=== PATIENT | male | born 1970 | race Hispanic/Latino ===

== ENCOUNTER 2018-01-16 15:00 | Outpatient (AMBR) | payer MEDICARE, MEDICAID, SELFPAY ==
--- NOTE | 2017-12-30 11:41 | PT.OIERPT ---
PT OP Initial Eval Patient Information Visit Reasons: Cerebrovascular accident Medical Diagnosis: CVA I69.30 I69.354 Hemiplegia Treatment Dx #1: ms weakness Treatment Dx #2: unsteadiness on feet Start of Care: 12/30/17 Date of Onset: 10/17/2017 Initial Assessment Subjective 47 y/o male who had CVA 4 years ago who is accompanied by his son today. Patient has L hemiplegia. As per patient he wanted to have more strength on the LUE and be able to ambulate better. As per son he is usually wc bound but is trying to ambulate further but due to patient's hemiplegia he cant because he can easily fatigue and has lack of ms strength. He can't ambulate long distance on even and uneven surface, up and down the stairs. He wants to be able to increase independence in ADL's, transfers and ambulation. Mhx: DM, (-) pacemaker. Objective L shoulder flexion 2/5; extension 2/5 L elbow flexion 2-/5 extension 1/5 L wrist flexion 1/5 extension 0/5 L finger flexion 1/5 extension 0/5 L LE 3/5 grossly graded. TUG test 34.22 secs Tinetti standardized testing balance 16, gait 01/02 total score 18/28 (+) R UE flexor spasticity (R) LE extensor spasticity Gait deviations : Hemiplegic gait with LLE externally rotated, L foot drop. (+) circumduction of the hip for toe clearance. Assessment patient will benefit from skilled PT services for ms strengthening of UE and LE with and inhibition from the L UE flexor synergy and LLE extensor synergy, to improve gait with less gait deviations, and for patient to increase endurance to be able to ambulate further and have more quality of life. . Benefits of Rehab explained to the patient and to the son, as well as the risk and possible lack of progress inspite of therapy was given considering the time frame of CVA. If no progress was made within 8-10 tx patient will be dc from PT services or will be refer back to his PCP for further instructions. Patient and son were able to verbalize understanding. Short Term and [facility] Goals STG To increase ms strength on LUE with +1 grade to increase ms strength on LLE to 3+/5 LTG To increase ms strength on LUE with +2 grade To increase ms strength on LLE to 4/5 To decrease TUG score to 25secs To increase tinetti score to 23/28 to Be I with HEP to decrease flexor spasticity of LUE and extensor spasticity of LLE To be able to decrease gait deviations and improve toe clearance Treatment Plan Thera ex [facility] Gait training manual Tx Estim (prn) Frequency and Duration 2x/wk x 8 weeks Certification Dates: 12/30/2017 to 04/01/2018 CVA/TIA Most Recent Cardiac Tests: No Data to Display
--- NOTE | 2017-12-30 12:03 | PTNOTE_ITS ---
PT OP Initial Eval Patient Information Visit Reasons: Cerebrovascular accident Medical Diagnosis: CVA I69.30 I69.354 Hemiplegia Treatment Dx #1: ms weakness Treatment Dx #2: unsteadiness on feet Start of Care: 12/30/17 Date of Onset: 10/17/2017 Initial Assessment Subjective 47 y/o male who had CVA 4 years ago who is accompanied by his son today. Patient has L hemiplegia. As per patient he wanted to have more strength on the LUE and be able to ambulate better. As per son he is usually wc bound but is trying to ambulate further but due to patient's hemiplegia he cant because he can easily fatigue and has lack of ms strength. He can't ambulate long distance on even and uneven surface, up and down the stairs. He wants to be able to increase independence in ADL's, transfers and ambulation. Mhx: DM, (-) pacemaker. Objective L shoulder flexion 2/5; extension 2/5 L elbow flexion 2-/5 extension 1/5 L wrist flexion 1/5 extension 0/5 L finger flexion 1/5 extension 0/5 L LE 3/5 grossly graded. TUG test 34.22 secs Tinetti standardized testing balance 16, gait 01/02 total score 18/28 (+) R UE flexor spasticity (R) LE extensor spasticity Gait deviations : Hemiplegic gait with LLE externally rotated, L foot drop. (+) circumduction of the hip for toe clearance. Assessment patient will benefit from skilled PT services for ms strengthening of UE and LE with and inhibition from the L UE flexor synergy and LLE extensor synergy, to improve gait with less gait deviations, and for patient to increase endurance to be able to ambulate further and have more quality of life. . Benefits of Rehab explained to the patient and to the son, as well as the risk and possible lack of progress inspite of therapy was given considering the time frame of CVA. If no progress was made within 8-10 tx patient will be dc from PT services or will be refer back to his PCP for further instructions. Patient and son were able to verbalize understanding. Short Term and [facility]way Goals STG To increase ms strength on LUE with +1 grade to increase ms strength on LLE to 3+/5 LTG To increase ms strength on LUE with +2 grade To increase ms strength on LLE to 4/5 To decrease TUG score to 25secs To increase tinetti score to 23/28 to Be I with HEP to decrease flexor spasticity of LUE and extensor spasticity of LLE To be able to decrease gait deviations and improve toe clearance Treatment Plan Thera ex [facility] Gait training manual Tx Estim (prn) Frequency and Duration 2x/wk x 8 weeks Certification Dates: 12/30/2017 to 04/01/2018 CVA/TIA Most Recent Cardiac Tests: 2 No Data to Display
--- NOTE | 2018-01-02 15:42 | PT.ODAYNRPT ---
PT Outpatient Daily Note Date of Service: January 02, 2018 OP Daily Note Visit Reasons: Cerebrovascular accident Outpatient Physical Therapy Treatment Date: 01/02/18 Subjective: pt doing well upon visit. son came in with pt. Objective: see flow sheet. Assessment: pt came in with positive attitude motivated and very pleasant. when trying to work on hand/wrist movement pt tends to compensate by using shoulder activation. pt has very little social media community manager strength so assisted with gripping the objects used in today's session. noted pt has tight L shoulder and and bicep. PROM and STM to the L bicep and palpated increased tension while static stretch into shoulder abduction. pt was having pain and discomfort due to tightness. Plan: continue POC per PT. Length of Time (minutes) of Treatment: 30 Minutes Office Procedures PT Outpatient G-Codes Date of Service PT Date of Service: 12/30/17 G-Codes Walking & Moving Around Mobility Current Status G-Code: G8978: CK 40-60% Mobility Status G-Code: G8979: CI 1-20% PT Procedures PT Date of Service: 12/30/17 OP PT Eval Mod Complex 30 minutes: Yes PT Procedures PT Date of Service: 01/02/18 Therapeutic Exercise 15 minutes: Yes Manual Insulation Professional 15 minutes: Yes CVA/TIA Most Recent Cardiac Tests: No Data to Display
--- NOTE | 2018-01-02 16:13 | PTNOTE_ITS ---
PT Outpatient Daily Note Date of Service: January 02, 2018 OP Daily Note Visit Reasons: Cerebrovascular accident Outpatient Physical Therapy Treatment Date: 01/02/18 Subjective: pt doing well upon visit. son came in with pt. Objective: see flow sheet. Assessment: pt came in with positive attitude motivated and very pleasant. when trying to work on hand/wrist movement pt tends to compensate by using shoulder activation. pt has very little client engagement manager strength so assisted with gripping the objects used in today's session. noted pt has tight L shoulder and and bicep. PROM and STM to the L bicep and palpated increased tension while static stretch into shoulder abduction. pt was having pain and discomfort due to tightness. Plan: continue POC per PT. Length of Time (minutes) of Treatment: 30 Minutes Office Procedures PT Outpatient G-Codes Date of Service PT Date of Service: 12/30/17 G-Codes Walking & Moving Around Mobility Current Status G-Code: G8978: CK 40-60% Mobility Status G-Code: G8979: CI 1-20% PT Procedures PT Date of Service: 12/30/17 OP PT Eval Mod Complex 30 minutes: Yes PT Procedures PT Date of Service: 01/02/18 Therapeutic Exercise 15 minutes: Yes Manual Meal Attendant 15 minutes: Yes CVA/TIA Most Recent Cardiac Tests: 2 No Data to Display
--- NOTE | 2018-01-06 12:20 | PT.ODAYNRPT ---
PT Outpatient Daily Note Date of Service: January 06, 2018 OP Daily Note Pediatric or Adult Patient: Adult PT >13 Visit Reasons: Cerebrovascular accident Outpatient Physical Therapy Treatment Date: 01/06/18 Subjective: no new complains Objective: pls see FS Assessment: patient were given manual passive stretching towards L UE supination, abduction. patient has muscle tightness. Low resistance bicycle with LUE positioned in place by acewrap bandage to prevent it from falling. Son is with the patient the whole time. No pain were reported after therapy. Patient is pleasant and cooperative and tolerated all the mgt given. Plan: Thera ex Pain Present Currently: No Length of Time (minutes) of Treatment: 30 Minutes Office Procedures PT Outpatient G-Codes Date of Service PT Date of Service: 12/30/17 G-Codes Walking & Moving Around Mobility Current Status G-Code: G8978: CK 40-60% Mobility Status G-Code: G8979: CI 1-20% PT Procedures PT Date of Service: 12/30/17 OP PT Eval Mod Complex 30 minutes: Yes PT Procedures PT Date of Service: 01/02/18 Therapeutic Exercise 15 minutes: Yes Manual Sql Server Architect 15 minutes: Yes CVA/TIA Most Recent Cardiac Tests: No Data to Display
--- NOTE | 2018-01-06 12:24 | PTNOTE_ITS ---
PT Outpatient Daily Note Date of Service: January 06, 2018 OP Daily Note Pediatric or Adult Patient: Adult PT >13 Visit Reasons: Cerebrovascular accident Outpatient Physical Therapy Treatment Date: 01/06/18 Subjective: no new complains Objective: pls see FS Assessment: patient were given manual passive stretching towards L UE supination , abduction. patient has muscle tightness. Low resistance bicycle with LUE positioned in place by acewrap bandage to prevent it from falling. Son is with the patient the whole time. No pain were reported after therapy. Patient is pleasant and cooperative and tolerated all the mgt given. Plan: Thera ex Pain Present Currently: No Length of Time (minutes) of Treatment: 30 Minutes Office Procedures PT Outpatient G-Codes Date of Service PT Date of Service: 12/30/17 G-Codes Walking & Moving Around Mobility Current Status G-Code: G8978: CK 40-60% Mobility Status G-Code: G8979: CI 1-20% PT Procedures PT Date of Service: 12/30/17 OP PT Eval Mod Complex 30 minutes: Yes PT Procedures PT Date of Service: 01/02/18 Therapeutic Exercise 15 minutes: Yes Manual Team Guide 15 minutes: Yes CVA/TIA Most Recent Cardiac Tests: 2 No Data to Display
--- NOTE | 2018-01-09 12:11 | PT.ODAYNRPT ---
PT Outpatient Daily Note Date of Service: January 09, 2018 OP Daily Note Pediatric or Adult Patient: Adult PT >13 Visit Reasons: Cerebrovascular accident Outpatient Physical Therapy Treatment Date: 01/09/18 Subjective: no new complains Objective: pls see FS Assessment: patient were given manual passive stretching towards L UE supination, abduction. patient has muscle tightness. patient were given 2lbs AW doing ROM on L UE as tolerated. patient requires constant cues to do ROM slowly due to patent is usually playful and is doing the exercise too fast. Low resistance bicycle with LUE positioned in place by acewrap bandage to prevent it from falling. is with the patient the whole time. No pain were reported after therapy. Patient is pleasant and cooperative and tolerated all the mgt given. Plan: Thera ex Pain Present Currently: No Length of Time (minutes) of Treatment: 30 Minutes Office Procedures PT Outpatient G-Codes Date of Service PT Date of Service: 12/30/17 G-Codes Walking & Moving Around Mobility Current Status G-Code: G8978: CK 40-60% Mobility Status G-Code: G8979: CI 1-20% PT Procedures PT Date of Service: 12/30/17 OP PT Eval Mod Complex 30 minutes: Yes PT Procedures PT Date of Service: 01/02/18 Therapeutic Exercise 15 minutes: Yes Manual Disability Case Manager 15 minutes: Yes PT Procedures PT Date of Service: 01/06/18 Therapeutic Exercise 30 minutes: Yes CVA/TIA Most Recent Cardiac Tests: No Data to Display
--- NOTE | 2018-01-13 15:36 | PT.ODAYNRPT ---
PT Outpatient Daily Note Date of Service: January 13, 2018 OP Daily Note Visit Reasons: Cerebrovascular accident Outpatient Physical Therapy Treatment Date: 01/13/18 Subjective: pt doing well today with no complaints. pt always in good mood and pleasant. Objective: see flow sheet. Assessment: pt can tolerate the PROM into shoulder abduction but when increase range he tends to tense up with a little pain but cued to relax and take deep breaths. attempted to stretch into other positions but pt too tight which causes discomfort. AAROM for a some exercises due to poor control manager strength. advised pt to continue to squeeze ball to improve control manager strength. pt can ambulate to the restroom which is down the tang and back on his own using the quad cane. slow steady pace but can keep fair balance. pt has difficulty with his L foot on the pedal of the bike as it tends to fall off and needs assistance to push it back on. Plan: continue POC per PT. Length of Time (minutes) of Treatment: 30 Minutes Office Procedures PT Outpatient G-Codes Date of Service PT Date of Service: 12/30/17 G-Codes Walking & Moving Around Mobility Current Status G-Code: G8978: CK 40-60% Mobility Status G-Code: G8979: CI 1-20% PT Procedures PT Date of Service: 12/30/17 OP PT Eval Mod Complex 30 minutes: Yes PT Procedures PT Date of Service: 01/02/18 Therapeutic Exercise 15 minutes: Yes Manual Stenciler 15 minutes: Yes PT Procedures PT Date of Service: 01/06/18 Therapeutic Exercise 30 minutes: Yes PT Procedures PT Date of Service: 01/09/18 Therapeutic Exercise 30 minutes: Yes PT Procedures PT Date of Service: 01/13/18 Therapeutic Exercise 15 minutes: Yes Manual Stenciler 15 minutes: Yes CVA/TIA Most Recent Cardiac Tests: No Data to Display
--- NOTE | 2018-01-13 16:37 | PTNOTE_ITS ---
PT Outpatient Daily Note Date of Service: January 13, 2018 OP Daily Note Visit Reasons: Cerebrovascular accident Outpatient Physical Therapy Treatment Date: 01/13/18 Subjective: pt doing well today with no complaints. pt always in good mood and pleasant. Objective: see flow sheet. Assessment: pt can tolerate the PROM into shoulder abduction but when increase range he tends to tense up with a little pain but cued to relax and take deep breaths. attempted to stretch into other positions but pt too tight which causes discomfort. AAROM for a some exercises due to poor veneer grader strength. advised pt to continue to squeeze ball to improve veneer grader strength. pt can ambulate to the restroom which is down the tang and back on his own using the quad cane. slow steady pace but can keep fair balance. pt has difficulty with his L foot on the pedal of the bike as it tends to fall off and needs assistance to push it back on. Plan: continue POC per PT. Length of Time (minutes) of Treatment: 30 Minutes Office Procedures PT Outpatient G-Codes Date of Service PT Date of Service: 12/30/17 G-Codes Walking & Moving Around Mobility Current Status G-Code: G8978: CK 40-60% Mobility Status G-Code: G8979: CI 1-20% PT Procedures PT Date of Service: 12/30/17 OP PT Eval Mod Complex 30 minutes: Yes PT Procedures PT Date of Service: 01/02/18 Therapeutic Exercise 15 minutes: Yes Manual Mail Agent 15 minutes: Yes PT Procedures PT Date of Service: 01/06/18 Therapeutic Exercise 30 minutes: Yes PT Procedures PT Date of Service: 01/09/18 Therapeutic Exercise 30 minutes: Yes PT Procedures PT Date of Service: 01/13/18 Therapeutic Exercise 15 minutes: Yes Manual Mail Agent 15 minutes: Yes CVA/TIA Most Recent Cardiac Tests: 2 No Data to Display
--- NOTE | 2018-01-16 17:26 | PTNOTE_ITS ---
PT Outpatient Daily Note Date of Service: January 16, 2018 OP Daily Note Visit Reasons: Cerebrovascular accident Outpatient Physical Therapy Treatment Date: 01/16/18 Subjective: pt doing well with no complaints. Objective: see flow sheet. Assessment: pt tends to tense up during PROM and needs cuing to relax. pt was able to hold his L hand on the handle during sci-fit with using a strap but also needed one for his L foot. pt can side step inside th PB but with only using the R hand. as he side steps with the R foot 1st then he drags the L foot. Plan: continue POC per PT. Length of Time (minutes) of Treatment: 30 Minutes Office Procedures PT Outpatient G-Codes Date of Service PT Date of Service: 12/30/17 G-Codes Walking & Moving Around Mobility Current Status G-Code: G8978: CK 40-60% Mobility Status G-Code: G8979: CI 1-20% PT Procedures PT Date of Service: 12/30/17 OP PT Eval Mod Complex 30 minutes: Yes PT Procedures PT Date of Service: 01/02/18 Therapeutic Exercise 15 minutes: Yes Manual Electrical Checkout Mechanic 15 minutes: Yes PT Procedures PT Date of Service: 01/06/18 Therapeutic Exercise 30 minutes: Yes PT Procedures PT Date of Service: 01/09/18 Therapeutic Exercise 30 minutes: Yes PT Procedures PT Date of Service: 01/16/18 Therapeutic Exercise 30 minutes: Yes PT Procedures PT Date of Service: 01/13/18 Therapeutic Exercise 15 minutes: Yes Manual Electrical Checkout Mechanic 15 minutes: Yes CVA/TIA Most Recent Cardiac Tests: 2 No Data to Display
== END 2018-01-21 23:59 | disposition home or self-care (01) ==
PROVIDERS: PCP Family Medicine; Referring Provider Family Medicine; Visit Provider Physician Assistant
DX: I10 Essential (primary) hypertension (principal)
CPT/HCPCS: 97110; 97140; 97162; G8978; G8979

== ENCOUNTER 2018-02-20 14:00 | Outpatient (AMBR) | payer MEDICARE, MEDICAID, SELFPAY ==
--- NOTE | 2018-01-23 16:44 | PT.ODAYNRPT ---
PT Outpatient Daily Note Date of Service: January 23, 2018 OP Daily Note Visit Reasons: cva Outpatient Physical Therapy Treatment Date: 01/23/18 Subjective: came along today. pt doing well today. states pt is not being complaint with HEP. Objective: see flow sheet. Assessment: started off with MT of the shoulder in different motions. was very helpful in getting pt to focus as he tends to lose focus. pt does have a lot of tightness of the pecs. max cuing for pt to stay still and turn to the R side. pt seems to also have tightness of the neck on the L side which is why he does not like looking to the R side. added more sets to the exercises which caused muscle fatigue. advised pt and to continue HEP. Plan: continue POC per PT. Length of Time (minutes) of Treatment: 30 Minutes Office Procedures PT Procedures PT Date of Service: 01/23/18 Therapeutic Exercise 15 minutes: Yes Manual Manager Of Pharmacy 15 minutes: Yes
--- NOTE | 2018-01-27 16:14 | PTNOTE_ITS ---
PT Outpatient Daily Note Date of Service: January 27, 2018 OP Daily Note Visit Reasons: cva Outpatient Physical Therapy Treatment Date: 01/27/18 Subjective: pt doing well today as he came in with his . pt states compliance of stretching his L shoulder. Objective: see flow sheet. Assessment: noted pt can tolerate the MT of the shoulder stretches with less pain. pt increase a little more range as well. added new exercise for the L shoulder using thera band tied on the pole so he is to horizontal abd as he tries to touch my hand. pt did good. had to cue him a few times to slow down and control the motion. pt completed more sets of cybex rows with lower weight. observed pt walking to his car and getting into his truck with no assistance. Plan: continue POC per PT. Length of Time (minutes) of Treatment: 30 Minutes Office Procedures PT Procedures PT Date of Service: 01/23/18 Therapeutic Exercise 15 minutes: Yes Manual Line Maintenance Technician 15 minutes: Yes PT Procedures PT Date of Service: 01/27/18 Therapeutic Exercise 30 minutes: Yes
--- NOTE | 2018-01-30 17:03 | PTNOTE_ITS ---
PT Outpatient Daily Note Date of Service: January 30, 2018 OP Daily Note Visit Reasons: cva Outpatient Physical Therapy Treatment Date: 01/30/18 Subjective: pt reports non-compliant with HEP. states they get busy and forget. Objective: see flow sheet. Assessment: educated pt on the importance of HEP and pt understands. pt does have increase in pain during MT of shoulder. mx cuing for pt to relax as he likes to use his R hand to resist the stretch. pt can be very impulsive and needs to calm down during reps. if he rushes through the reps then he does not perform correctly. during OH wand flexion it shows improved ROM but tends to lean onto the R side. Plan: continue POC per PT. Length of Time (minutes) of Treatment: 30 Minutes Office Procedures PT Procedures PT Date of Service: 01/30/18 Therapeutic Exercise 15 minutes: Yes Manual Repair Armature Winder Helper 15 minutes: Yes PT Procedures PT Date of Service: 01/23/18 Therapeutic Exercise 15 minutes: Yes Manual Repair Armature Winder Helper 15 minutes: Yes PT Procedures PT Date of Service: 01/27/18 Therapeutic Exercise 30 minutes: Yes
--- NOTE | 2018-02-03 16:50 | PT.ODAYNRPT ---
PT Outpatient Daily Note Date of Service: February 03, 2018 OP Daily Note Visit Reasons: cva Outpatient Physical Therapy Treatment Date: 02/03/18 Subjective: pt reports assisting with stretches at home. Objective: see flow sheet. Assessment: noted increase in ROM during MT stretches of the shoulder. pt has pain and discomfort during stretches and needs cuing to relax as he tries to remove my hand. a little STM to his pecs during PROM and palpated a lot of muscle tension. pt was c/o pain and discomfort so educated him to understand the reason for PROM and STM. present and observes the stretches so she can help pt at home. cued pt to slow down during reps as he needs to learn to control the motion with each rep. Plan: continue POC per PT. Length of Time (minutes) of Treatment: 30 Minutes Office Procedures PT Procedures PT Date of Service: 01/30/18 Therapeutic Exercise 15 minutes: Yes Manual Remote Operations Producer 15 minutes: Yes PT Procedures PT Date of Service: 01/23/18 Therapeutic Exercise 15 minutes: Yes Manual Remote Operations Producer 15 minutes: Yes PT Procedures PT Date of Service: 01/27/18 Therapeutic Exercise 30 minutes: Yes PT Procedures PT Date of Service: 02/03/18 Therapeutic Exercise 15 minutes: Yes Manual Remote Operations Producer 15 minutes: Yes
--- NOTE | 2018-02-06 16:49 | PT.ODAYNRPT ---
PT Outpatient Daily Note Date of Service: February 06, 2018 OP Daily Note Visit Reasons: cva Outpatient Physical Therapy Treatment Date: 02/06/18 Subjective: pt doing well upon visit. pt always in good mood. came in with pt. Objective: see flow sheet. Assessment: pt can tolerate shoulder abuduction stretch than the other stretches in PROM. if pt is talking and distracted than he can tolerate the PROM better. pt's law tutor is not as strong to hold the thera band and tends to slip out of fingers so we have to readjust thera band after a few reps. Plan: continue POC per PT. Length of Time (minutes) of Treatment: 30 Minutes Office Procedures PT Procedures PT Date of Service: 01/30/18 Therapeutic Exercise 15 minutes: Yes Manual Offshore Wind Operations Manager 15 minutes: Yes PT Procedures PT Date of Service: 02/06/18 Therapeutic Exercise 15 minutes: Yes Manual Offshore Wind Operations Manager 15 minutes: Yes PT Procedures PT Date of Service: 01/23/18 Therapeutic Exercise 15 minutes: Yes Manual Offshore Wind Operations Manager 15 minutes: Yes PT Procedures PT Date of Service: 01/27/18 Therapeutic Exercise 30 minutes: Yes PT Procedures PT Date of Service: 02/03/18 Therapeutic Exercise 15 minutes: Yes Manual Offshore Wind Operations Manager 15 minutes: Yes
--- NOTE | 2018-02-06 16:53 | PTNOTE_ITS ---
PT Outpatient Daily Note Date of Service: February 06, 2018 OP Daily Note Visit Reasons: cva Outpatient Physical Therapy Treatment Date: 02/06/18 Subjective: pt doing well upon visit. pt always in good mood. came in with pt. Objective: see flow sheet. Assessment: pt can tolerate shoulder abuduction stretch than the other stretches in PROM. if pt is talking and distracted than he can tolerate the PROM better. pt's stair builder is not as strong to hold the thera band and tends to slip out of fingers so we have to readjust thera band after a few reps. Plan: continue POC per PT. Length of Time (minutes) of Treatment: 30 Minutes Office Procedures PT Procedures PT Date of Service: 01/30/18 Therapeutic Exercise 15 minutes: Yes Manual Ladies Suit Operator 15 minutes: Yes PT Procedures PT Date of Service: 02/06/18 Therapeutic Exercise 15 minutes: Yes Manual Ladies Suit Operator 15 minutes: Yes PT Procedures PT Date of Service: 01/23/18 Therapeutic Exercise 15 minutes: Yes Manual Ladies Suit Operator 15 minutes: Yes PT Procedures PT Date of Service: 01/27/18 Therapeutic Exercise 30 minutes: Yes PT Procedures PT Date of Service: 02/03/18 Therapeutic Exercise 15 minutes: Yes Manual Ladies Suit Operator 15 minutes: Yes
--- NOTE | 2018-02-10 10:59 | PTNOTE_ITS ---
PT OP Progress/Discharge Note Date of Service: February 10, 2018 Progress Note/DC Note Progress Note/Discharge Note: DC Note Patient Information Pediatric or Adult Patient: Adult PT >13 Visit Reasons: cva Medical Diagnosis: CVA I69.30 Hemiplegia Treatment Dx #1: muscle weakness unsteadiness on feet Service Continue Service or Discharge: Continue Service Certification Date Certification Dates: 02/10/2018 to 05/09/2018 Plan Treatment Plan: Thera ex Manual tx Frequency and Duration: 2x/wk 6 weeks Status Subjective: 47 y/o male who had CVA 4 years ago. Patient is progressing steadily towards goals. As per he is ambulating a little bit farther. Patient has gain strength on the LUE Objective: L shoulder flexion n2+/5, Extension 2+/5 L elbow flexion 2/5 , extensrion 1+/5 L wrist flexion 2/5 extension 0/5 L fingers felxion 2-/5, extension 0/5 Tinetti standardized tesing 21/28 = moderate risk for falls TUG score 31.10 secs Assessment: Patient will benefit to continue Skilled PT services focusing more on the L UE ms strength vs the ambulation. and patient agreed. WIll continue skilled PT services and will re-assess after 5 tx session see how much patient is progressing or if he reached the maximum rehab potential. Patient and was reminded re: HEP to be done at home. Patient and understands the need of doing HEP at home. Plan: to continue POC toward goals. Treatment Provided This POC: Thera ex Manual tx HEP Office Procedures PT Procedures PT Date of Service: 01/30/18 Therapeutic Exercise 15 minutes: Yes Manual Hide Or Skin Buffer 15 minutes: Yes PT Procedures PT Date of Service: 02/06/18 Therapeutic Exercise 15 minutes: Yes Manual Hide Or Skin Buffer 15 minutes: Yes PT Procedures PT Date of Service: 01/23/18 Therapeutic Exercise 15 minutes: Yes Manual Hide Or Skin Buffer 15 minutes: Yes PT Procedures PT Date of Service: 01/27/18 Therapeutic Exercise 30 minutes: Yes PT Procedures PT Date of Service: 02/03/18 Therapeutic Exercise 15 minutes: Yes Manual Hide Or Skin Buffer 15 minutes: Yes
--- NOTE | 2018-02-13 17:32 | PTNOTE_ITS ---
PT Outpatient Daily Note Date of Service: February 13, 2018 OP Daily Note Visit Reasons: cva Outpatient Physical Therapy Treatment Date: 02/13/18 Subjective: pt doing well with no complaints upon visit. Objective: see flow sheet. Assessment: pt walks in on his own using his roland walker on the R side. pt starts to c/o pain and discomfort towards the end of MT shoulder stretches. pt does not like the stretches and tends to remove my hand but cued pt to relax and take deep breaths. if pt turn his neck to the R then he gets increase in stretch and does not like it. increased weight on the cybex in which he was able to perform the exercise but cued him to use his L shoulder as equal to his R shoulder. Plan: continue POC per PT. Length of Time (minutes) of Treatment: 30 Minutes Office Procedures PT Procedures PT Date of Service: 01/30/18 Therapeutic Exercise 15 minutes: Yes Manual Food Safety Coordinator 15 minutes: Yes PT Procedures PT Date of Service: 02/06/18 Therapeutic Exercise 15 minutes: Yes Manual Food Safety Coordinator 15 minutes: Yes PT Procedures PT Date of Service: 01/23/18 Therapeutic Exercise 15 minutes: Yes Manual Food Safety Coordinator 15 minutes: Yes PT Procedures PT Date of Service: 01/27/18 Therapeutic Exercise 30 minutes: Yes PT Procedures PT Date of Service: 02/03/18 Therapeutic Exercise 15 minutes: Yes Manual Food Safety Coordinator 15 minutes: Yes PT Procedures PT Date of Service: 02/10/18 Therapeutic Exercise 15 minutes: Yes Manual Food Safety Coordinator 15 minutes: Yes PT Procedures PT Date of Service: 02/13/18 Therapeutic Exercise 15 minutes: Yes Manual Food Safety Coordinator 15 minutes: Yes
--- NOTE | 2018-02-20 16:30 | PT.ODAYNRPT ---
PT Outpatient Daily Note Date of Service: February 20, 2018 OP Daily Note Visit Reasons: cva Outpatient Physical Therapy Treatment Date: 02/20/18 Subjective: pt reports compliance with HEP. Objective: see flow sheet. Assessment: pt likes to joke around a lot and needs to be told to calm down and take this more serious. has to calm him down as well. pt was more sensitive during stretches today than other days. advised pt to take deep breaths to keep calm during PROM. pt tries to remove my hand during stretches. pt has a better printed circuit boards solder leveler strength with wide bar during cybex exercises instead of short bar as he attempted it but his hand kept slipping off. Plan: continue POC per PT. Length of Time (minutes) of Treatment: 30 Minutes Office Procedures PT Procedures PT Date of Service: 01/30/18 Therapeutic Exercise 15 minutes: Yes Manual Mechanical Assembly 15 minutes: Yes PT Procedures PT Date of Service: 02/06/18 Therapeutic Exercise 15 minutes: Yes Manual Mechanical Assembly 15 minutes: Yes PT Procedures PT Date of Service: 02/20/18 Therapeutic Exercise 15 minutes: Yes Manual Mechanical Assembly 15 minutes: Yes PT Procedures PT Date of Service: 01/23/18 Therapeutic Exercise 15 minutes: Yes Manual Mechanical Assembly 15 minutes: Yes PT Procedures PT Date of Service: 01/27/18 Therapeutic Exercise 30 minutes: Yes PT Procedures PT Date of Service: 02/03/18 Therapeutic Exercise 15 minutes: Yes Manual Mechanical Assembly 15 minutes: Yes PT Procedures PT Date of Service: 02/10/18 Therapeutic Exercise 15 minutes: Yes Manual Mechanical Assembly 15 minutes: Yes PT Procedures PT Date of Service: 02/13/18 Therapeutic Exercise 15 minutes: Yes Manual Mechanical Assembly 15 minutes: Yes
--- NOTE | 2018-02-20 16:41 | PTNOTE_ITS ---
PT Outpatient Daily Note Date of Service: February 20, 2018 OP Daily Note Visit Reasons: cva Outpatient Physical Therapy Treatment Date: 02/20/18 Subjective: pt reports compliance with HEP. Objective: see flow sheet. Assessment: pt likes to joke around a lot and needs to be told to calm down and take this more serious. has to calm him down as well. pt was more sensitive during stretches today than other days. advised pt to take deep breaths to keep calm during PROM. pt tries to remove my hand during stretches. pt has a better substation operator helper strength with wide bar during cybex exercises instead of short bar as he attempted it but his hand kept slipping off. Plan: continue POC per PT. Length of Time (minutes) of Treatment: 30 Minutes Office Procedures PT Procedures PT Date of Service: 01/30/18 Therapeutic Exercise 15 minutes: Yes Manual Assistant Store Leader 15 minutes: Yes PT Procedures PT Date of Service: 02/06/18 Therapeutic Exercise 15 minutes: Yes Manual Assistant Store Leader 15 minutes: Yes PT Procedures PT Date of Service: 02/20/18 Therapeutic Exercise 15 minutes: Yes Manual Assistant Store Leader 15 minutes: Yes PT Procedures PT Date of Service: 01/23/18 Therapeutic Exercise 15 minutes: Yes Manual Assistant Store Leader 15 minutes: Yes PT Procedures PT Date of Service: 01/27/18 Therapeutic Exercise 30 minutes: Yes PT Procedures PT Date of Service: 02/03/18 Therapeutic Exercise 15 minutes: Yes Manual Assistant Store Leader 15 minutes: Yes PT Procedures PT Date of Service: 02/10/18 Therapeutic Exercise 15 minutes: Yes Manual Assistant Store Leader 15 minutes: Yes PT Procedures PT Date of Service: 02/13/18 Therapeutic Exercise 15 minutes: Yes Manual Assistant Store Leader 15 minutes: Yes
== END 2018-02-21 23:59 | disposition home or self-care (01) ==
PROVIDERS: PCP Family Medicine; Referring Provider Family Medicine; Visit Provider Physician Assistant
DX: I10 Essential (primary) hypertension (principal)
CPT/HCPCS: 97110; 97140

== ENCOUNTER 2018-02-28 14:50 | Outpatient (AMBR) | payer MEDICARE, MEDICAID, SELFPAY ==
--- NOTE | 2018-02-28 17:12 | PTNOTE_ITS ---
PT Outpatient Daily Note Date of Service: February 28, 2018 OP Daily Note Visit Reasons: cva Outpatient Physical Therapy Treatment Date: 02/28/18 Subjective: pt came in with daughter and daughter reports pt has not been complaint with HEP. she says pt gets upset if family remind him of HEP. he barely likes to walk. Objective: see flow sheet. Assessment: pt was not able to tolerate PROM in all motions due to pain but encouraged pt to hold as it's important to increase ROM. pt's shoulder continues to be very tight. shoulder tenses up with stretches. pt tends to neglect the R side as he is always facing the L side. when ask pt to look to his R side he c/o increase pain as it causes stretching the neck. attempted pulleys but his L and slipped off but then was able to try again with poor posture. he leans to the R side but neck to the L side. Plan: continue POC per PT. Length of Time (minutes) of Treatment: 30 Minutes Office Procedures PT Procedures PT Date of Service: 02/28/18 Therapeutic Exercise 15 minutes: Yes Manual Director Statistical Programming 15 minutes: Yes
== END 2018-03-23 23:59 | disposition home or self-care (01) ==
PROVIDERS: PCP Family Medicine; Referring Provider Family Medicine; Visit Provider Physician Assistant
DX: I69.354 Hemiplegia and hemiparesis following cerebral infarction affecting left non-dominant side (principal); M62.81 Muscle weakness (generalized); R26.81 Unsteadiness on feet
CPT/HCPCS: 97110; 97140